=== PATIENT | female | born 1935 | race Two or more races ===

== ENCOUNTER 2020-06-13 09:11 | Inpatient (IN) | payer MEDICARE ==
[2020-06-13] MEDS ORDERED: PIPERACILLIN/TAZOBACTAM 3.375 GM VIAL IV ONE (10:27)
[2020-06-13] MEDS ORDERED: ACETAMINOPHEN 325 MG TABLET PO ONE (10:27)
[2020-06-13] MEDS ORDERED: NORMAL SALINE 1000 ML 1,000 ML IV ONE (10:28)
--- NOTE | 2020-06-13 10:33 | ER Document Report ---
ED Extremity Problem, Lower - General Chief Complaint: Leg Pain Stated Complaint: LEG PAIN Time Seen by Provider: 06/13/20 10:03 Mode of Arrival: Medic Information source: Patient, Relative - HPI Notes: 85-year-old Kyrgyz speaking female presents to ED for evaluation of increasing left lower extremity erythema and swelling over the last week. 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 Daughter states that patient was initially seen at an urgent care for redness to the lower leg. Reports she has had difficulty with ambulation and they gave her a shot of antibiotics which the daughter believes was Rocephin. That she was discharged home on Keflex and has been taking the medication as prescribed. Reports that the redness has been increasing up her leg and into her thigh. Notes that her mother who normally ambulates with a cane has been unable to do so and has begun using a walker however that has also become difficult. Reports that they have called back the urgent care that she was seen at an due to her increasing presentation they recommended that she proceed to the ER for further evaluation and management. Daughter reports that they have not noticed any fevers at home or complaints of chills. She has not complained of any chest pain or shortness of breath. Denies open sores, recent travel, sick contacts or other complaints. Does take 81 mg of aspirin daily for prior history of 3 strokes several years ago. - Related Data Allergies/Adverse Reactions: No Known Allergies Allergy (Unverified 06/13/20 09:22) Past Medical History - Social History Smoking Status: Never Smoker Family History: CVA, DM, Hypertension - Past Medical History Cardiac Medical History: Reports: Hx Hypertension Endocrine Medical History: Reports: Hx Diabetes Mellitus Type 2 Review of Systems - Review of Systems Notes: REVIEW OF SYSTEMS: CONSTITUTIONAL : Denies fever, chills, or sweats. Denies recent illness. EENT: Denies eye, ear, throat, or mouth pain or symptoms. Denies nasal or sinus congestion. CARDIOVASCULAR: Denies chest pain. RESPIRATORY: Denies cough, cold, or chest congestion. Denies shortness of breath, difficulty breathing, or wheezing. GASTROINTESTINAL: Denies abdominal pain. Denies nausea, vomiting, or diarrhea. Denies constipation. Last BM: GENITOURINARY: Denies difficulty urinating, painful urination, burning, frequency, or blood in urine. FEMALE GENITOURINARY: Denies vaginal bleeding, abnormal or irregular periods. LMP: MUSCULOSKELETAL: Denies neck or back pain or joint pain or swelling. SKIN: Erythema and swelling to the left lower extremity. HEMATOLOGIC : Denies easy bruising or bleeding. LYMPHATIC: Denies swollen, enlarged glands. NEUROLOGICAL: Denies altered mental status or loss of consciousness. Denies headache. Denies weakness or paralysis or loss of use of either side. Denies problems with gait or speech. Denies sensory or motor loss. PSYCHIATRIC: Denies anxiety or stress or depression. ALL OTHER SYSTEMS REVIEWED AND NEGATIVE. Physical Exam - Vital signs Vitals: Temp Pulse Resp BP Pulse Ox 98.8 F 95 20 154/66 H 100 06/13/20 09:16 06/13/20 09:16 06/13/20 09:16 06/13/20 09:16 06/13/20 09:16 General: No acute distress. Alert and oriented x3. Speaking azerbaijani to daughter. Sitting comfortably in a stretcher. Skin: Intact without any jaundice, pallor, or erythema. Warm and dry. HEENT: Normocephalic, atraumatic. Pupils are equal round reactive to light and accommodation. Extraocular movements are intact. TMs without erythema or bulging. Canals are clear. Nares patent without any discharge. Teeth in good condition. Pharynx without erythema, edema, or exudates. No tonsillar enlargement. Uvula is midline. Airway is patent. Neck: Supple with no lymphadenopathy. Thyroid is nontender with no swelling or palpable nodules. Heart: Regular rate and rhythm. S1,S2. No murmurs, rubs, or gallops. Lungs: Clear to auscultation bilaterally. No wheezes, rhonchi, rales. Equal c hest expansion. No retractions. Abdomen: Soft, nontender to palpation, nondistended. Positive bowel sounds in all 4 quadrants. No hepatosplenomegaly. No masses. Neuro: GCS 15. Moving all extremities without discomfort. Musculoskeletal: Left Leg: Edema, warmth, and swelling to the left foot and lower calf without ecchymosis, swelling, palpable cords or deformity. Tenderness to palpation present. Full range of motion of hip, knee, and ankle without discomfort. Knee joint is stable. Toes are warm and mobile with brisk capillary refill. Dorsalis pedis pulses 2+ bilaterally. 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 Patient has been on Keflex as an outpatient without improvement. Patient presents to ED today for further evaluation management. On physical exam, patient has erythema extending up the lower extremity. This is blanchable. Patient does not have open sores or lesions I can be cultured at this time. Patient was evaluated with labs which are notable for WBC count of 17.6 with Sodium of 12.9 and glucose of 240. Lactic is negative at 1.0. Doppler ultrasound of the left lower extremity was obtained which is negative for DVT at this time. I see no evidence of superficial thrombophlebitis. I reviewed the radiologist read and with agreement with this. These findings and her use of outpatient antibiotics without improvement I believe this is antibiotic failure. Patient also is found to have an elevated BUN and creatinine which appears to be new for her without clear etiology. Patient was given fluids. I have no evidence of renal failure for her in prior records and she has not been to this hospital in the past. I called and spoke with the hospitalist service and discussed case with PRODUCT TESTER Xin Blackwell has agreed to admit patient in conjunction with Dr. Becker management. Both patient and her daughter are in agreement with IV antibiotics for further management and this plan of care. - Vital Signs Vital signs: Temp Pulse Resp BP Pulse Ox 98.8 F 95 20 154/66 H 100 06/13/20 09:16 06/13/20 09:16 06/13/20 09:16 06/13/20 09:16 06/13/20 09:16 - Laboratory Result Diagrams: 06/13/20 10:45 06/13/20 10:45 Laboratory results interpreted by me: 06/13/20 06/13/20 10:45 10:45 WBC 17.6 H Seg Neuts % (Manual) 92 H Lymphocytes % (Manual) 2 L Abs Neuts (Manual) 16.2 H Abs Lymphs (Manual) 0.4 L Sodium 129.4 L Chloride 97 L BUN 85 H Creatinine 3.62 H Est GFR ( Amer) 15 L Est GFR (MDRD) Non-Af 12 L Glucose 240 H Discharge - Discharge Clinical Impression: Cellulitis of left lower extremity, SONAL (acute kidney injury) Condition: Stable Disposition: ADMITTED OBSERVATION Admitting Provider: Dao (Hospitalist) Unit Admitted: Medical Floor
[2020-06-13 11:36] LABS: HEMATOCRIT 39.1 % (36.0-47.0); HEMOGLOBIN 13.3 g/dL (12.0-15.5); MEAN CORPUSCULAR HEMOGLOBIN 30.6 pg (27.0-33.4); MEAN CORPUSCULAR HGB CONC 34.1 g/dL (32.0-36.0); MEAN CORPUSCULAR VOLUME 90 fl (80-97); PLATELET COUNT 193 10^3/uL (150-450); RED BLOOD COUNT 4.35 10^6/uL (3.72-5.28); WHITE BLOOD COUNT 17.6 10^3/uL (4.0-10.5)
[2020-06-13 11:50] LABS: ALBUMIN 3.9 g/dL (3.5-5.0); ALKALINE PHOSPHATASE 112 U/L (38-126); ANION GAP 9 (5-19); ASPARTATE AMINO TRANSFERASE 32 U/L (14-36); BILIRUBIN,DIRECT 0.2 mg/dL (0.0-0.4); BILIRUBIN,TOTAL 0.5 mg/dL (0.2-1.3); BLOOD UREA NITROGEN 85 mg/dL (7-20); CALCIUM 9.5 mg/dL (8.4-10.2); CARBON DIOXIDE 23 mmol/L (22-30); CHLORIDE 97 mmol/L (98-107); GLUCOSE 240 mg/dL (75-110); POTASSIUM 4.8 mmol/L (3.6-5.0); TOTAL PROTEIN 7.3 g/dL (6.3-8.2)
--- NOTE | 2020-06-13 11:57 | RADIOLOGY REPORT (SQ) ---
EXAM DESCRIPTION: VENOUS UNILATERAL LOWER IMAGES COMPLETED DATE/TIME: 06/13/2020 11:47 am REASON FOR STUDY: left lower extremity swelling - R/O DVT COMPARISON: None. TECHNIQUE: Dynamic and static coleman scale and color images acquired of the left leg venous system. Se lected spectral images acquired with additional compression and augmentation maneuvers. The contralat eral common femoral vein and saphenofemoral junction were also imaged. Images stored on PACS. LIMITATIONS: None. FINDINGS: COMMON FEMORAL: Normal phasicity, compression and augmentation. No visualized echogenic ma terial on coleman scale. No defects on color images. FEMORAL: Normal compression and augmentation. No visualized echogenic material on coleman scale. No defe cts on color images. POPLITEAL: Normal compression, augmentation. No visualized echogenic material on coleman scale. No defec ts on color images. CALF VESSELS: Normal compression, augmentation. No visualized echogenic material on coleman scale. No de fects on color images. GSV and SSV: Normal compression, augmentation. No visualized echogenic material on coleman scale. No def ects on color images. ANY DEEP VENOUS INSUFFICIENCY: Not evaluated. ANY EVIDENCE OF POPLITEAL CYST: No. OTHER: No other significant finding. CONTRALATERAL COMMON FEMORAL VEIN AND SAPHENOFEMORAL JUNCTION: Normal phasicity, compression and augmentation. No visualized echogenic material on coleman scale. No de fects on color images. IMPRESSION: NO EVIDENCE DVT OR SVT IN THE LEFT LEG. TECHNICAL DOCUMENTATION: JOB ID: [id number] 2010 [email or web address]- All Rights Reserved Reading location - IP/workstation name: [email or web address]
[2020-06-13 12:07] LABS: ABSOLUTE LYMPHOCYTES# (MANUAL) 0.4 10^3/uL (0.5-4.7); ABSOLUTE MONOCYTES # (MANUAL) 1.1 10^3/uL (0.1-1.4); BASOPHILS % (MANUAL) 0 % (0-2); EOSINOPHILS % (MANUAL) 0 % (0-6); LYMPHOCYTES % (MANUAL) 2 % (13-45); MONOCYTES % (MANUAL) 6 % (3-13); SEGMENTED NEUTROPHILS % (MAN) 92 % (42-78); TOTAL CELLS COUNTED 100
[2020-06-13 12:08] LABS: ANISOCYTOSIS SLIGHT; PLATELET COMMENT ADEQUATE
[2020-06-13] MEDS ORDERED: MAG HYDROX/AL HYDROX/SIMETH SUSP 30 ML UDCUP PO PRN (13:34)
[2020-06-13] MEDS ORDERED: ALBUTEROL SULFATE 0.083% NEB 2.5 MG/3 ML AMPUL NEB PRN (13:34)
[2020-06-13] MEDS ORDERED: ONDANSETRON HCL INJ/PF 4 MG/2 ML SDV IV PRN (13:34)
[2020-06-13 14:52] LABS: AMORPHOUS SEDIMENT,URINE TRACE /HPF; APPEARANCE,URINE SLIGHTLY-CLOUDY; BILIRUBIN,URINE NEGATIVE (NEGATIVE); COLOR,URINE YELLOW; GLUCOSE, URINE NEGATIVE (NEGATIVE); KETONES,URINE NEGATIVE (NEGATIVE); PROTEIN,URINE 30 mg/dL (NEGATIVE); UROBILINOGEN,URINE NEGATIVE mg/dL (<2.0)
[2020-06-13 15:31] LABS: URINE CREATININE 45.2 mg/dL (15-278)
[2020-06-13] MEDS ORDERED: GLUCAGON,HUMAN RECOMB 1 MG INJ IM PRN (17:08)
[2020-06-13] MEDS ORDERED: DEXTROSE 50%-WATER 25 GM/50 ML DISP.SYRIN IV PRN ×2 (17:08)
[2020-06-13] MEDS ORDERED: DEXTROSE 40% GEL 15 GM TUBE PO PRN ×2 (17:08)
[2020-06-13 17:11] LABS: ANION GAP 8 (5-19); BLOOD UREA NITROGEN 78 mg/dL (7-20); CALCIUM 8.9 mg/dL (8.4-10.2); CARBON DIOXIDE 22 mmol/L (22-30); CHLORIDE 101 mmol/L (98-107); GLUCOSE 177 mg/dL (75-110); POTASSIUM 4.7 mmol/L (3.6-5.0)
[2020-06-13] MEDS: CEFAZOLIN 1 GM/D5W RTU 1 GM/50 ML RTUPB IV SCH (17:15)
[2020-06-13] MEDS: NORMAL SALINE 1000 ML 1,000 ML IV PRN (17:16)
--- NOTE | 2020-06-13 17:41 | PDOC H&P ---
History of Present Illness Admission Date/PCP: 06/13/20 13:49 Patient complains of: left leg pain, weakness, falls History of Present Illness: EDGAR ZAMBRANO is a 85 year old female, who is Kiswahili-speaking only [place], with a past medical history of CVA x3 with residual, mild, left side weakness, HTN, and DM2. She presented to the emergency department after out treatment failure for left lower extremity cellulitis. She was seen at a local urgent care and provided Rocephin followed by oral keflex 4 days ago. Since then, she has had progressively increased tenderness and erythema to her left lower extremity. The cellulitis began to her foot and has gradually spread proximally. The patient's daughter states that she has had in creased fatigue, weakness, and some confusion. She denies fever, n/v/d. They do admit to decrease appetite and oral fluids. No urinary symptoms. She has had multiple falls, without injury. Evaluation in the emergency department found stable vital signs, leukocytosis (WBC 17.6 with a left-sided shift), Hyponatremia (NA 129.4), kidney injury (acute versus chronic; no known prior CKD and no prior labs to compare to. Creatinine 3.62/BUN 85), and a glucose of 240. Urinalysis was negative for UTI. Venous Doppler of the left lower extremity negative for thrombosis. Patient was provided 1 L IV bolus and Zosyn. She was then referred to the hospitalist service for further evaluation management of the above stay complaints and findings. Past Medical History Cardiac Medical History: Reports: Hypertension Pulmonary Medical History: Reports: None EENT Medical History: Reports: None Neurological Medical History: Reports: Ischemic CVA Endocrine Medical History: Reports: Diabetes Mellitus Type 2 Malignancy Medical History: Reports: None GI Medical History: Reports: None Psychiatric Medical History: Reports: None Denies: Depression Traumatic Medical History: Reports: None Hematology: Reports: None Infectious Medical History: Reports: None Past Surgical History Past Surgical History: Reports: Orthopedic Surgery - left hip Social History Information Source: Relative Lives with: Family Smoking Status: Never Smoker Electronic Cigarette use?: No Frequency of Alcohol Use: None Hx Recreational Drug Use: No Drugs: None Hx Prescription Drug Abuse: No Family History Family History: CVA, DM, Hypertension Parental Family History Reviewed: Yes Children Family History Reviewed: Yes Sibling(s) Family History Reviewed.: Yes Medication/Allergy Home Medications: Amlodipine Besylate [Norvasc 5 mg Tablet] 5 mg PO DAILY 06/13/20 Aspirin [Adult Low Dose Aspirin EC] 81 mg PO DAILY 06/13/20 Glipizide [Glipizide Xl] 5 mg PO QAM 06/13/20 Lisinopril [Zestril] 40 mg PO DAILY 06/13/20 Metformin HCl [Glucophage] 1,000 mg PO BIDBS 06/13/20 Pantoprazole Sodium [Protonix [address] Tablet] 40 mg PO QAM 06/13/20 Rosuvastatin Calcium [Crestor] 20 mg PO DAILY 06/13/20 Allergies/Adverse Reactions: No Known Allergies Allergy (Unverified 06/13/20 09:22) Review of Systems Constitutional: PRESENT: anorexia, fatigue, weakness. ABSENT: chills, fever(s), headache(s), weight gain, weight loss Eyes: ABSENT: visual disturbances Ears: ABSENT: hearing changes Cardiovascular: ABSENT: chest pain, dyspnea on exertion, edema, orthropnea, palpitations Respiratory: ABSENT: cough, hemoptysis Gastrointestinal: ABSENT: abdominal pain, constipation, diarrhea, hematemesis, hematochezia, nausea, vomiting Genitourinary: ABSENT: dysuria, hematuria Musculoskeletal: ABSENT: joint swelling Integumentary: PRESENT: as per HPI, erythema. ABSENT: lesions, rash, wounds Neurological: PRESENT: frequent falls. ABSENT: abnormal gait, abnormal speech, confusion, dizziness, focal weakness, syncope Psychiatric: ABSENT: anxiety, depression, homidical ideation, suicidal ideation Endocrine: ABSENT: cold intolerance, heat intolerance, polydipsia, polyuria Hematologic/Lymphatic: ABSENT: easy bleeding, easy bruising Physical Exam Vital Signs: Temp Pulse Resp BP Pulse Ox 98.7 F 85 14 164/64 H 99 06/13/20 16:58 06/13/20 16:58 06/13/20 16:58 06/13/20 16:58 06/13/20 16:58 Intake & Output 06/12/20 06/13/20 06/14/20 06:59 06:59 06:59 Intake Total 1000 Balance 1000 Weight 54.2 kg General appearance: PRESENT: no acute distress, cooperative, well-developed, well-nourished Head exam: PRESENT: atraumatic, normocephalic Eye exam: PRESENT: conjunctiva pink, EOMI, PERRLA. ABSENT: scleral icterus Mouth exam: PRESENT: moist, tongue midline Respiratory exam: PRESENT: clear to auscultation gaurav, symmetrical, unlabored, other - room air. ABSENT: rales, rhonchi, wheezes Cardiovascular exam: PRESENT: RRR. ABSENT: diastolic murmur, rubs, systolic murmur Pulses: PRESENT: normal dorsalis pedis pul Vascular exam: PRESENT: normal capillary refill GI/Abdominal exam: PRESENT: normal bowel sounds, soft. ABSENT: distended, guarding, mass, organolmegaly, rebound, tenderness Rectal exam: PRESENT: deferred Extremities exam: PRESENT: full ROM, pedal edema - lt foot, tenderness - L foor. ABSENT: calf tenderness, clubbing Neurological exam: PRESENT: alert, awake, oriented to person, oriented to place, oriented to time, oriented to situation, CN II-XII grossly intact. ABSENT: motor sensory deficit Psychiatric exam: PRESENT: appropriate affect, normal mood. ABSENT: homicidal ideation, suicidal ideation Skin exam: PRESENT: dry, erythema - Circumfrencial to left foot extending midway to knee. Slight erythema to the anterior thigh just above knee. No lymphangitis. Slight edema. Tender to touch. No break in skin identified., intact, warm. ABSENT: cyanosis, rash Results Laboratory Results: 06/13/20 10:45 06/13/20 06/13/20 06/13/20 10:45 10:45 10:45 WBC 17.6 H RBC 4.35 Hgb 13.3 Hct 39.1 MCV 90 MCH 30.6 MCHC 34.1 RDW 14.0 Plt Count 193 Seg Neutrophils % Not Reportable Sodium 129.4 L Potassium 4.8 Chloride 97 L Carbon Dioxide 23 Anion Gap 9 BUN 85 H Creatinine 3.62 H Est GFR ( Amer) 15 L Glucose 240 H Lactic Acid 1.0 Calcium 9.5 Total Bilirubin 0.5 AST 32 Alkaline Phosphatase 112 Total Protein 7.3 Albumin 3.9 Urine Color Urine Appearance Urine pH Ur Specific [place] Urine Protein Urine Glucose (UA) Urine Ketones Urine Blood Urine RBC (Auto) 06/13/20 14:38 WBC RBC Hgb Hct MCV MCH MCHC RDW Plt Count Seg Neutrophils % Sodium Potassium Chloride Carbon Dioxide Anion Gap BUN Creatinine Est GFR ( Amer) Glucose Lactic Acid Calcium Total Bilirubin AST Alkaline Phosphatase Total Protein Albumin Urine Color YELLOW Urine Appearance SLIGHTLY-CLOUDY Urine pH 5.0 Ur Specific [place] 1.010 Urine Protein 30 H Urine Glucose (UA) NEGATIVE Urine Ketones NEGATIVE Urine Blood MODERATE H Urine RBC (Auto) 1 06/13/20 10:45 Creatine Kinase 138 H Impressions: Venous Doppler Study 06/13/20 10:24 IMPRESSION: NO EVIDENCE DVT OR SVT IN THE LEFT LEG. Assessment and Plan - Diagnosis (1) Cellulitis of left lower extremity Is this a current diagnosis for this admission?: Yes Plan: Failed outpatient treatment with ceftriaxone IM x1 and oral Keflex beginning 4 days ago. Increased tenderness and erythema. Now with generalized weakness and poor p.o. intake. WBCs 17 K. Blood culture pending Patient is admitted to medical floor. Elevate extremity. Start IV cefepime 1 g every 8 hours. (2) Renal insufficiency Is this a current diagnosis for this admission?: Yes Plan: Unclear if patient has chronic kidney disease. Patient's daughter was unaware of any prior kidney disease/disorders. The patient was fatigued did not part icipate in conversation. Creatinine 3.62/BUN 85 on arrival. No prior labs to compare to. FeNa 2.1%; suggesting intrinsic injury. Repeat chemistry following ~1.5L is minimally improved to 3.42/78 Continue IV fluids. Encourage p.o. fluids. Avoid nephrotoxic medications as able. Follow-up chemistries. (3) HTN (hypertension) Qualifiers: Hypertension type: essential hypertension Qualified Code(s): I10 - Essential (primary) hypertension Is this a current diagnosis for this admission?: Yes Plan: Continue home dose amlodipine and lisinopril. (4) Diabetes Qualifiers: Diabetes mellitus type: type 2 Diabetes mellitus [facility] insulin use: without [facility] use Is this a current diagnosis for this admission?: Yes Plan: Holding oral medications while admitted. Patient is placed on a consistent carb diet. Accu-Cheks before meals and at bedtime with Humalog for sliding scale coverage. Hypoglycemia protocol in place. (5) Hyponatremia Is this a current diagnosis for this admission?: Yes Plan: Likely r/t poor p.o. intake over last several days. Na 129.4-> 131.3.3 Continue IVF Follow up chemistry. (6) History of CVA (cerebrovascular accident) Is this a current diagnosis for this admission?: Yes Plan: Mild residual left-sided weakness. Continue home dose aspirin and statin therapy. Supportive care. Fall precautions. - Time Time Spent with patient: 35 or more minutes Medications reviewed and adjusted accordingly: Yes Anticipated Discharge Disposition: Home, Self Care Anticipated Discharge Timeframe: within 48 hours
[2020-06-13] MEDS ORDERED: CEFAZOLIN 1 GM/D5W RTU 1 GM/50 ML RTUPB IV SCH (18:00)
[2020-06-13] MEDS: INSULIN LISPRO 100 UNIT/ML 3 ML VIAL SUBCUT SCH (21:17)
[2020-06-14] MEDS: ACETAMINOPHEN 325 MG TABLET PO PRN ×2 (03:51→08:15)
[2020-06-14] MEDS: NORMAL SALINE 1000 ML 1,000 ML IV PRN ×2 (03:57→23:29)
[2020-06-14] MEDS: CEFAZOLIN 1 GM/D5W RTU 1 GM/50 ML RTUPB IV SCH ×2 (05:07→17:01)
[2020-06-14 05:42] LABS: HEMOGLOBIN 12.2 g/dL (12.0-15.5); MEAN CORPUSCULAR HEMOGLOBIN 30.7 pg (27.0-33.4); MEAN CORPUSCULAR HGB CONC 33.9 g/dL (32.0-36.0); MEAN CORPUSCULAR VOLUME 90 fl (80-97); PLATELET COUNT 170 10^3/uL (150-450); RED BLOOD COUNT 3.98 10^6/uL (3.72-5.28); RED CELL DISTRIBUTION WIDTH 13.4 % (11.5-14.0); WHITE BLOOD COUNT 14.4 10^3/uL (4.0-10.5)
[2020-06-14 06:04] LABS: ANION GAP 13 (5-19); BLOOD UREA NITROGEN 69 mg/dL (7-20); CALCIUM 8.8 mg/dL (8.4-10.2); CARBON DIOXIDE 19 mmol/L (22-30); CHLORIDE 105 mmol/L (98-107); GLUCOSE 98 mg/dL (75-110); POTASSIUM 4.1 mmol/L (3.6-5.0)
[2020-06-14 06:28] LABS: ABSOLUTE LYMPHOCYTES# (MANUAL) 0.6 10^3/uL (0.5-4.7); ABSOLUTE MONOCYTES # (MANUAL) 0.7 10^3/uL (0.1-1.4); BAND NEUTROPHILS % (MANUAL) 1 % (3-5); BASOPHILS % (MANUAL) 0 % (0-2); EOSINOPHILS % (MANUAL) 0 % (0-6); LYMPHOCYTES % (MANUAL) 4 % (13-45); MONOCYTES % (MANUAL) 5 % (3-13); SEGMENTED NEUTROPHILS % (MAN) 90 % (42-78); TOTAL CELLS COUNTED 100
[2020-06-14 06:29] LABS: BURR CELLS 1+; HYPERSEGMENTED NEUTROPHILS PRESENT; PLATELET COMMENT ADEQUATE; POIKILOCYTOSIS 1+
[2020-06-14] MEDS ORDERED: INFLUENZA QUAD (6MOS+) 2020-21 VAC 0.5 ML SYR IM ONE (08:00)
[2020-06-14] MEDS: INSULIN LISPRO 100 UNIT/ML 3 ML VIAL SUBCUT SCH ×4 (08:01→21:24)
[2020-06-14] MEDS: PANTOPRAZOLE SODIUM 40 MG TABLET.DR PO SCH (08:12)
[2020-06-14] MEDS: AMLODIPINE BESYLATE 5 MG TABLET PO SCH (10:11)
[2020-06-14] MEDS: ASPIRIN 81 MG TABLET, ENT COATED PO SCH (10:11)
[2020-06-14] MEDS: DOCUSATE SODIUM 100 MG CAPSULE PO SCH (10:11)
[2020-06-14] MEDS: LISINOPRIL 10 MG TABLET PO SCH (10:11)
[2020-06-14] MEDS: ENOXAPARIN SODIUM INJ 30 MG/0.3 ML DISP.SYRIN SUBCUT SCH (10:12)
[2020-06-14] MEDS ORDERED: ACETAMINOPHEN 325 MG TABLET PO PRN (11:30)
--- NOTE | 2020-06-14 16:20 | PDOC PROGRESS REPORT ---
Subjective Date:: 06/14/20 Subjective:: No adverse events overnight. She is comfortable sitting up in the bed talking w ith her daughter. She says she feels like the redness in her leg and foot is not as bad as it was when she came in. She apparently had been on oral antibiotics for 3 to 4 days before she came back into the hospital. Reason For Visit: SONAL, CELLULITIS Physical Exam Vital Signs: Temp Pulse Resp BP Pulse Ox 97.7 F 89 18 166/60 H 100 06/14/20 11:17 06/14/20 11:17 06/14/20 11:17 06/14/20 11:17 06/14/20 11:17 Intake & Output 06/13/20 06/14/20 06/15/20 06:59 06:59 06:59 Intake Total 2200 641 Output Total 1000 750 Balance 1200 -109 Weight 54.4 kg General appearance: PRESENT: no acute distress, cooperative, disheveled Respiratory exam: PRESENT: clear to auscultation gaurav, symmetrical, unlabored. ABSENT: accessory muscle use, chest wall tenderness, crackles, prolonged expiratory phas, rhonchi, tachypnea, wheezes Cardiovascular exam: PRESENT: RRR, +S1, +S2 Pulses: PRESENT: normal carotid pulses Vascular exam: PRESENT: normal capillary refill GI/Abdominal exam: PRESENT: normal bowel sounds, soft. ABSENT: distended, guarding, rebound, tenderness Extremities exam: PRESENT: pedal edema - Left foot, +1 edema - Left ankle. ABSENT: clubbing Musculoskeletal exam: ABSENT: deformity Neurological exam: PRESENT: awake, oriented to person, oriented to place, oriented to situation Psychiatric exam: PRESENT: appropriate affect, normal mood Skin exam: PRESENT: dry, erythema - Left foot, extending up the medial aspect of the left leg to about 8 cm proximal to the knee, warm Results Laboratory Results: 06/14/20 05:00 06/14/20 05:00 06/13/20 06/14/20 06/14/20 16:35 05:00 05:00 WBC 14.4 H RBC 3.98 Hgb 12.2 Hct 36.0 MCV 90 MCH 30.7 MCHC 33.9 RDW 13.4 Plt Count 170 Seg Neutrophils % Not Reportable Sodium 131.3 L 136.9 L Potassium 4.7 4.1 Chloride 101 105 Carbon Dioxide 22 19 L Anion Gap 8 13 BUN 78 H 69 H Creatinine 3.42 H 3.12 H Est GFR ( Amer) 16 L 17 L Glucose 177 H 98 Calcium 8.9 8.8 06/13/20 10:45 Creatine Kinase 138 H Impressions: Venous Doppler Study 06/13/20 10:24 IMPRESSION: NO EVIDENCE DVT OR SVT IN THE LEFT LEG. Assessment and Plan - Diagnosis (1) SONAL (acute kidney injury) Is this a current diagnosis for this admission?: Yes (2) Cellulitis of left lower extremity Is this a current diagnosis for this admission?: Yes (3) Diabetes Qualifiers: Diabetes mellitus type: type 2 Diabetes mellitus [facility] insulin use: without [facility] use Is this a current diagnosis for this admission?: Yes (4) HTN (hypertension) Qualifiers: Hypertension type: essential hypertension Qualified Code(s): I10 - Essential (primary) hypertension Is this a current diagnosis for this admission?: Yes (5) History of CVA (cerebrovascular accident) Is this a current diagnosis for this admission?: Yes - Plan Summary Summary: She seems to be responding well to antibiotics. We will continue current therapy. Blood cultures are pending. No evidence of any drainable abscess or DVT. Creatinine continues to slowly trend down. Anticipate she is going to ne ed another 3 or 4 days at this rate. Keeping a close eye on her blood sugars. Vital signs have been stable. - Time Time Spent with patient: 15-24 minutes Anticipated Discharge Disposition: Home, Self Care Anticipated Discharge Timeframe: Unknown
--- NOTE | 2020-06-15 00:34 | CDI QUERY ---
CDI Query CDI Review: We are seeking further clarification of documentation to reflect the severity of illness of your patient. 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 JOAQUIN Thurston RN Clinical [employer] Plant Sweater Operator Physician Advisor
[2020-06-15] MEDS: CEFAZOLIN 1 GM/D5W RTU 1 GM/50 ML RTUPB IV SCH ×2 (05:55→17:16)
[2020-06-15] MEDS: INSULIN LISPRO 100 UNIT/ML 3 ML VIAL SUBCUT SCH ×4 (07:08→22:31)
[2020-06-15] MEDS: ENOXAPARIN SODIUM INJ 30 MG/0.3 ML DISP.SYRIN SUBCUT SCH (09:38)
[2020-06-15] MEDS: DOCUSATE SODIUM 100 MG CAPSULE PO SCH (09:38)
[2020-06-15] MEDS: ASPIRIN 81 MG TABLET, ENT COATED PO SCH (09:39)
[2020-06-15] MEDS: AMLODIPINE BESYLATE 5 MG TABLET PO SCH (09:39)
[2020-06-15] MEDS: NORMAL SALINE 1000 ML 1,000 ML IV PRN (09:39)
[2020-06-15] MEDS: PANTOPRAZOLE SODIUM 40 MG TABLET.DR PO SCH (09:39)
[2020-06-15] MEDS: LISINOPRIL 10 MG TABLET PO SCH (09:39)
[2020-06-15 11:47] LABS: HEMOGLOBIN 12.6 g/dL (12.0-15.5); MEAN CORPUSCULAR HEMOGLOBIN 30.2 pg (27.0-33.4); MEAN CORPUSCULAR HGB CONC 33.3 g/dL (32.0-36.0); MEAN CORPUSCULAR VOLUME 91 fl (80-97); PLATELET COUNT 193 10^3/uL (150-450); RED BLOOD COUNT 4.19 10^6/uL (3.72-5.28); RED CELL DISTRIBUTION WIDTH 13.9 % (11.5-14.0); WHITE BLOOD COUNT 11.9 10^3/uL (4.0-10.5)
[2020-06-15 12:10] LABS: ANION GAP 11 (5-19); BLOOD UREA NITROGEN 51 mg/dL (7-20); CALCIUM 8.2 mg/dL (8.4-10.2); CARBON DIOXIDE 17 mmol/L (22-30); CHLORIDE 105 mmol/L (98-107); POTASSIUM 4.2 mmol/L (3.6-5.0)
[2020-06-15 12:17] LABS: GLUCOSE 458 mg/dL (75-110)
[2020-06-15] MEDS ORDERED: INSULIN LISPRO 100 UNIT/ML 3 ML VIAL SUBCUT ONE (13:45)
--- NOTE | 2020-06-15 17:22 | PDOC PROGRESS REPORT ---
Subjective Date:: 06/15/20 Subjective:: No adverse events overnight. No new complaints. Vital signs been stable. Bloo d pressures are a little high in the morning before she gets her medication. They improved steadily throughout the day. The redness in her leg is improved. She said overall she feels pretty good. Reason For Visit: SONAL, CELLULITIS Physical Exam Vital Signs: Temp Pulse Resp BP Pulse Ox 98.0 F 87 18 149/60 H 100 06/15/20 15:37 06/15/20 15:37 06/15/20 15:37 06/15/20 15:37 06/15/20 15:37 Intake & Output 06/14/20 06/15/20 06/16/20 06:59 06:59 06:59 Intake Total 2200 3421 600 Output Total 1000 3700 675 Balance 1200 -279 -75 Weight 54.4 kg 54.4 kg General appearance: PRESENT: no acute distress, cooperative, disheveled Respiratory exam: PRESENT: clear to auscultation gaurav, symmetrical, unlabored. ABSENT: accessory muscle use, chest wall tenderness, crackles, prolonged expiratory phas, rhonchi, tachypnea, wheezes Cardiovascular exam: PRESENT: RRR, +S1, +S2 Pulses: PRESENT: normal carotid pulses Vascular exam: PRESENT: normal capillary refill GI/Abdominal exam: PRESENT: normal bowel sounds, soft. ABSENT: distended, guarding, rebound, tenderness Extremities exam: PRESENT: pedal edema - Left foot, +1 edema - Left ankle. ABSENT: clubbing Musculoskeletal exam: ABSENT: deformity Neurological exam: PRESENT: awake, oriented to person, oriented to place, oriented to situation Psychiatric exam: PRESENT: appropriate affect, normal mood Skin exam: PRESENT: dry, erythema - Left foot, extending up the medial aspect of the left leg to about 4 cm distal to the knee, warm Results Laboratory Results: 06/15/20 11:30 06/15/20 11:30 06/15/20 06/15/20 11:30 11:30 WBC 11.9 H RBC 4.19 Hgb 12.6 Hct 38.0 MCV 91 MCH 30.2 MCHC 33.3 RDW 13.9 Plt Count 193 Sodium 132.8 L Potassium 4.2 Chloride 105 Carbon Dioxide 17 L Anion Gap 11 BUN 51 H Creatinine 2.43 H Est GFR ( Amer) 23 L Glucose 458 H* Calcium 8.2 L 06/13/20 10:45 Creatine Kinase 138 H Impressions: Venous Doppler Study 06/13/20 10:24 IMPRESSION: NO EVIDENCE DVT OR SVT IN THE LEFT LEG. Assessment and Plan - Diagnosis (1) SONAL (acute kidney injury) Is this a current diagnosis for this admission?: Yes (2) Cellulitis of left lower extremity Is this a current diagnosis for this admission?: Yes Plan: Unable to determine if the cellulitis is due to her diabetes (3) Diabetes Qualifiers: Diabetes mellitus type: type 2 Diabetes mellitus intermediate insulin use: without intermediate use Is this a current diagnosis for this admission?: Yes (4) HTN (hypertension) Qualifiers: Hypertension type: essential hypertension Qualified Code(s): I10 - Essential (primary) hypertension Is this a current diagnosis for this admission?: Yes (5) History of CVA (cerebrovascular accident) Is this a current diagnosis for this admission?: Yes - Plan Summary Summary: She seems to be responding well to antibiotics, erythema is resolving. We will continue current therapy. Blood cultures are negative at 48 hours. No evidence of any drainable abscess or DVT. Creatinine continues to slowly trend down. Anticipate she is going to need another 3 days at this rate. Keeping a close eye on her blood sugars, she had an elevated sugar midday but that has improved. - Time Time Spent with patient: 15-24 minutes Anticipated Discharge Disposition: Home, Self Care Anticipated Discharge Timeframe: Unknown
[2020-06-16] MEDS: NORMAL SALINE 1000 ML 1,000 ML IV PRN ×2 (03:44→17:41)
[2020-06-16] MEDS: CEFAZOLIN 1 GM/D5W RTU 1 GM/50 ML RTUPB IV SCH ×2 (05:04→17:40)
[2020-06-16 05:47] LABS: HEMOGLOBIN 12.1 g/dL (12.0-15.5); MEAN CORPUSCULAR HGB CONC 33.7 g/dL (32.0-36.0); MEAN CORPUSCULAR VOLUME 89 fl (80-97); PLATELET COUNT 206 10^3/uL (150-450); RED BLOOD COUNT 4.03 10^6/uL (3.72-5.28); WHITE BLOOD COUNT 8.5 10^3/uL (4.0-10.5)
[2020-06-16 06:01] LABS: ANION GAP 6 (5-19); BLOOD UREA NITROGEN 40 mg/dL (7-20); CALCIUM 8.1 mg/dL (8.4-10.2); CARBON DIOXIDE 21 mmol/L (22-30); CHLORIDE 112 mmol/L (98-107); GLUCOSE 145 mg/dL (75-110); POTASSIUM 4.4 mmol/L (3.6-5.0)
[2020-06-16] MEDS: PANTOPRAZOLE SODIUM 40 MG TABLET.DR PO SCH (08:08)
[2020-06-16] MEDS: INSULIN LISPRO 100 UNIT/ML 3 ML VIAL SUBCUT SCH ×4 (08:10→22:51)
[2020-06-16] MEDS: DOCUSATE SODIUM 100 MG CAPSULE PO SCH (09:21)
[2020-06-16] MEDS: LISINOPRIL 10 MG TABLET PO SCH (09:21)
[2020-06-16] MEDS: ENOXAPARIN SODIUM INJ 30 MG/0.3 ML DISP.SYRIN SUBCUT SCH (09:22)
[2020-06-16] MEDS: AMLODIPINE BESYLATE 5 MG TABLET PO SCH (09:22)
[2020-06-16] MEDS: ASPIRIN 81 MG TABLET, ENT COATED PO SCH (09:22)
--- NOTE | 2020-06-16 17:28 | PDOC PROGRESS REPORT ---
Subjective Date:: 06/16/20 Subjective:: No adverse events overnight. No new complaints. Blood pressures have been elev ated today. She is able to get up to walk to the bathroom with a walker and standby assistance. Reason For Visit: SONAL, CELLULITIS Physical Exam Vital Signs: Temp Pulse Resp BP Pulse Ox 97.7 F 77 17 183/63 H 100 06/16/20 11:13 06/16/20 11:13 06/16/20 11:13 06/16/20 11:13 06/16/20 11:13 Intake & Output 06/15/20 06/16/20 06/17/20 06:59 06:59 06:59 Intake Total 3421 2700 240 Output Total 3700 3075 Balance -279 -375 240 Weight 54.4 kg 54.4 kg General appearance: PRESENT: no acute distress, cooperative, disheveled Respiratory exam: PRESENT: clear to auscultation gaurav, symmetrical, unlabored. ABSENT: accessory muscle use, chest wall tenderness, crackles, prolonged expiratory phas, rhonchi, tachypnea, wheezes Cardiovascular exam: PRESENT: RRR, +S1, +S2 Pulses: PRESENT: normal carotid pulses Vascular exam: PRESENT: normal capillary refill GI/Abdominal exam: PRESENT: normal bowel sounds, soft. ABSENT: distended, guarding, rebound, tenderness Extremities exam: PRESENT: pedal edema - Left foot, +1 edema - Left ankle. ABSENT: clubbing Musculoskeletal exam: ABSENT: deformity Neurological exam: PRESENT: awake, oriented to person, oriented to place, oriented to situation Psychiatric exam: PRESENT: appropriate affect, normal mood Skin exam: PRESENT: dry, erythema - Left foot, extending up the medial aspect of the left leg to about 9 cm distal to the knee, warm Results Laboratory Results: 06/16/20 04:56 06/16/20 04:56 06/16/20 06/16/20 04:56 04:56 WBC 8.5 RBC 4.03 Hgb 12.1 Hct 36.0 MCV 89 MCH 30.0 MCHC 33.7 RDW 14.0 Plt Count 206 Sodium 138.7 Potassium 4.4 Chloride 112 H Carbon Dioxide 21 L Anion Gap 6 BUN 40 H Creatinine 2.61 H Est GFR ( Amer) 21 L Glucose 145 H Calcium 8.1 L 06/13/20 10:45 Creatine Kinase 138 H Impressions: Venous Doppler Study 06/13/20 10:24 IMPRESSION: NO EVIDENCE DVT OR SVT IN THE LEFT LEG. Assessment and Plan - Diagnosis (1) SONAL (acute kidney injury) Is this a current diagnosis for this admission?: Yes (2) Cellulitis of left lower extremity Is this a current diagnosis for this admission?: Yes (3) Diabetes Qualifiers: Diabetes mellitus type: type 2 Diabetes mellitus group home insulin use: without group home use Is this a current diagnosis for this admission?: Yes (4) HTN (hypertension) Qualifiers: Hypertension type: essential hypertension Qualified Code(s): I10 - Essential (primary) hypertension Is this a current diagnosis for this admission?: Yes (5) History of CVA (cerebrovascular accident) Is this a current diagnosis for this admission?: Yes - Plan Summary Summary: She seems to be responding well to antibiotics, erythema is resolving. We will continue current therapy. Blood cultures are negative. No evidence of any drai nable abscess or DVT. Creatinine has stagnated, but this may not be too far from her baseline. BUN continues to improve. Urine output has been good. I increased her amlodipine and have added chlorthalidone for better blood pressure control. She seems to have an elevated blood sugar before lunch but then after lunch when it is checked again after her prelunch insulin it comes back down. - Time Time Spent with patient: 15-24 minutes Anticipated Discharge Disposition: Home with Home Health Anticipated Discharge Timeframe: within 72 hours
[2020-06-17] MEDS: NORMAL SALINE 1000 ML 1,000 ML IV PRN ×2 (05:00→13:42)
[2020-06-17 05:26] LABS: HEMATOCRIT 35.4 % (36.0-47.0); HEMOGLOBIN 12.2 g/dL (12.0-15.5); MEAN CORPUSCULAR HEMOGLOBIN 30.6 pg (27.0-33.4); MEAN CORPUSCULAR HGB CONC 34.4 g/dL (32.0-36.0); MEAN CORPUSCULAR VOLUME 89 fl (80-97); PLATELET COUNT 219 10^3/uL (150-450); RED BLOOD COUNT 3.98 10^6/uL (3.72-5.28); RED CELL DISTRIBUTION WIDTH 13.9 % (11.5-14.0); WHITE BLOOD COUNT 9.8 10^3/uL (4.0-10.5)
[2020-06-17 05:50] LABS: ANION GAP 10 (5-19); BLOOD UREA NITROGEN 28 mg/dL (7-20); CALCIUM 7.9 mg/dL (8.4-10.2); CARBON DIOXIDE 19 mmol/L (22-30); CHLORIDE 111 mmol/L (98-107); GLUCOSE 144 mg/dL (75-110); POTASSIUM 3.8 mmol/L (3.6-5.0)
[2020-06-17] MEDS: CEFAZOLIN 1 GM/D5W RTU 1 GM/50 ML RTUPB IV SCH ×2 (06:08→17:02)
[2020-06-17] MEDS: INSULIN LISPRO 100 UNIT/ML 3 ML VIAL SUBCUT SCH ×4 (07:52→21:49)
[2020-06-17] MEDS: PANTOPRAZOLE SODIUM 40 MG TABLET.DR PO SCH (07:52)
[2020-06-17] MEDS: ASPIRIN 81 MG TABLET, ENT COATED PO SCH (10:07)
[2020-06-17] MEDS: DOCUSATE SODIUM 100 MG CAPSULE PO SCH (10:08)
[2020-06-17] MEDS: LISINOPRIL 10 MG TABLET PO SCH (10:08)
[2020-06-17] MEDS: AMLODIPINE BESYLATE 10 MG TABLET PO SCH (10:10)
[2020-06-17] MEDS: CHLORTHALIDONE 25 MG TABLET PO SCH (10:10)
[2020-06-17] MEDS: ENOXAPARIN SODIUM INJ 30 MG/0.3 ML DISP.SYRIN SUBCUT SCH (10:11)
--- NOTE | 2020-06-17 18:10 | PDOC PROGRESS REPORT ---
Subjective Date:: 06/17/20 Subjective:: No adverse events overnight. No new complaints. Vital signs have been stable. Blood pressures are still a bit on the high side. Creatinine has improved a little bit from yesterday. She said she is not eating very much because no appetite, and she is not able to sleep very well here. Reason For Visit: SONAL, CELLULITIS Physical Exam Vital Signs: Temp Pulse Resp BP Pulse Ox 98.8 F 100 18 165/83 H 97 06/17/20 16:00 06/17/20 16:00 06/17/20 16:00 06/17/20 16:00 06/17/20 16:00 Intake & Output 06/16/20 06/17/20 06/18/20 06:59 06:59 06:59 Intake Total 2700 3540 1620 Output Total 3075 3600 2000 Balance -375 -60 -380 Weight 54.4 kg 54.4 kg General appearance: PRESENT: no acute distress, cooperative, disheveled Respiratory exam: PRESENT: clear to auscultation gaurav, symmetrical, unlabored. ABSENT: accessory muscle use, chest wall tenderness, crackles, prolonged expiratory phas, rhonchi, tachypnea, wheezes Cardiovascular exam: PRESENT: RRR, +S1, +S2 Pulses: PRESENT: normal carotid pulses Vascular exam: PRESENT: normal capillary refill GI/Abdominal exam: PRESENT: normal bowel sounds, soft. ABSENT: distended, guarding, rebound, tenderness Extremities exam: PRESENT: pedal edema - Left foot, trace edema - Left ankle. ABSENT: clubbing Musculoskeletal exam: ABSENT: deformity Neurological exam: PRESENT: awake, oriented to person, oriented to place, oriented to situation Psychiatric exam: PRESENT: appropriate affect, normal mood Skin exam: PRESENT: dry, erythema - Left foot, extending up the medial aspect of the left leg to about 10 cm proximal to the ankle, warm Results Laboratory Results: 06/17/20 04:36 06/17/20 04:36 06/17/20 06/17/20 04:36 04:36 WBC 9.8 RBC 3.98 Hgb 12.2 Hct 35.4 L MCV 89 MCH 30.6 MCHC 34.4 RDW 13.9 Plt Count 219 Sodium 139.6 Potassium 3.8 Chloride 111 H Carbon Dioxide 19 L Anion Gap 10 BUN 28 H Creatinine 2.28 H Est GFR ( Amer) 25 L Glucose 144 H Calcium 7.9 L 06/13/20 10:45 Creatine Kinase 138 H Impressions: Venous Doppler Study 06/13/20 10:24 IMPRESSION: NO EVIDENCE DVT OR SVT IN THE LEFT LEG. Assessment and Plan - Diagnosis (1) SONAL (acute kidney injury) Is this a current diagnosis for this admission?: Yes (2) Cellulitis of left lower extremity Is this a current diagnosis for this admission?: Yes (3) Diabetes Qualifiers: Diabetes mellitus type: type 2 Diabetes mellitus usp insulin use: without usp use Is this a current diagnosis for this admission?: Yes (4) HTN (hypertension) Qualifiers: Hypertension type: essential hypertension Qualified Code(s): I10 - Essential (primary) hypertension Is this a current diagnosis for this admission?: Yes (5) History of CVA (cerebrovascular accident) Is this a current diagnosis for this admission?: Yes - Plan Summary Summary: She is having a favorable response to antibiotics, erythema is resolving. We will continue current therapy. Blood cultures are negative. No evidence of any drainable abscess or DVT. Creatinine has improved more from yesterday, but this still may not be too far from her baseline. BUN continues to improve. Urine output has been good. I increased her amlodipine and have added chlorthalidone for better blood pressure control. She seems to have an elevated blood sugar before lunch but then after lunch when it is checked again after her prelunch insulin it comes back down to some degree. If her blood sugars continue to rem ain somewhat elevated I may add some Lantus. - Time Time Spent with patient: 15-24 minutes Anticipated Discharge Disposition: Home, Self Care Anticipated Discharge Timeframe: within 72 hours
[2020-06-18] MEDS: CEFAZOLIN 1 GM/D5W RTU 1 GM/50 ML RTUPB IV SCH ×2 (05:31→17:10)
[2020-06-18] MEDS: NORMAL SALINE 1000 ML 1,000 ML IV PRN ×2 (05:34→11:54)
[2020-06-18 05:57] LABS: MEAN CORPUSCULAR HEMOGLOBIN 30.6 pg (27.0-33.4); MEAN CORPUSCULAR HGB CONC 34.4 g/dL (32.0-36.0); MEAN CORPUSCULAR VOLUME 89 fl (80-97); PLATELET COUNT 205 10^3/uL (150-450); RED BLOOD COUNT 3.94 10^6/uL (3.72-5.28); WHITE BLOOD COUNT 9.6 10^3/uL (4.0-10.5)
[2020-06-18 06:17] LABS: ANION GAP 11 (5-19); BLOOD UREA NITROGEN 20 mg/dL (7-20); CALCIUM 7.8 mg/dL (8.4-10.2); CARBON DIOXIDE 21 mmol/L (22-30); CHLORIDE 106 mmol/L (98-107); GLUCOSE 138 mg/dL (75-110); POTASSIUM 3.5 mmol/L (3.6-5.0)
[2020-06-18] MEDS: INSULIN LISPRO 100 UNIT/ML 3 ML VIAL SUBCUT SCH ×4 (07:19→22:14)
[2020-06-18] MEDS: PANTOPRAZOLE SODIUM 40 MG TABLET.DR PO SCH (08:10)
[2020-06-18] MEDS: AMLODIPINE BESYLATE 10 MG TABLET PO SCH (09:30)
[2020-06-18] MEDS: DOCUSATE SODIUM 100 MG CAPSULE PO SCH (09:30)
[2020-06-18] MEDS: ASPIRIN 81 MG TABLET, ENT COATED PO SCH (09:31)
[2020-06-18] MEDS: LISINOPRIL 10 MG TABLET PO SCH (09:31)
[2020-06-18] MEDS: CHLORTHALIDONE 25 MG TABLET PO SCH (09:32)
[2020-06-18] MEDS: ENOXAPARIN SODIUM INJ 30 MG/0.3 ML DISP.SYRIN SUBCUT SCH (09:32)
--- NOTE | 2020-06-18 17:06 | PDOC PROGRESS REPORT ---
Subjective Date:: 06/18/20 Subjective:: No adverse events overnight. No new complaints. Vital signs stable. Eating an d drinking without difficulty. We started chlorthalidone but her blood pressure was still elevated this afternoon. Midday glucose also seems to be the one that is the most elevated. Reason For Visit: SONAL, CELLULITIS Physical Exam Vital Signs: Temp Pulse Resp BP Pulse Ox 99.1 F 81 17 175/72 H 98 06/18/20 11:39 06/18/20 11:39 06/18/20 11:39 06/18/20 11:39 06/18/20 11:39 Intake & Output 06/17/20 06/18/20 06/19/20 06:59 06:59 06:59 Intake Total 3540 2900 1476 Output Total 3600 4130 1300 Balance -60 -1230 176 Weight 54.4 kg 58.3 kg General appearance: PRESENT: no acute distress, cooperative, disheveled Respiratory exam: PRESENT: clear to auscultation gaurav, symmetrical, unlabored. ABSENT: accessory muscle use, chest wall tenderness, crackles, prolonged expiratory phas, rhonchi, tachypnea, wheezes Cardiovascular exam: PRESENT: RRR, +S1, +S2 Pulses: PRESENT: normal carotid pulses Vascular exam: PRESENT: normal capillary refill GI/Abdominal exam: PRESENT: normal bowel sounds, soft. ABSENT: distended, guar ding, rebound, tenderness Extremities exam: PRESENT: pedal edema - Left foot, trace edema - Left ankle. ABSENT: clubbing Musculoskeletal exam: ABSENT: deformity Neurological exam: PRESENT: awake, oriented to person, oriented to place, oriented to situation Psychiatric exam: PRESENT: appropriate affect, normal mood Skin exam: PRESENT: dry, erythema - Left foot, extending just proximal to the ankle and significantly diminished, warm Results Laboratory Results: 06/18/20 05:00 06/18/20 05:00 06/18/20 06/18/20 05:00 05:00 WBC 9.6 RBC 3.94 Hgb 12.0 Hct 35.0 L MCV 89 MCH 30.6 MCHC 34.4 RDW 14.0 Plt Count 205 Sodium 138.3 Potassium 3.5 L Chloride 106 Carbon Dioxide 21 L Anion Gap 11 BUN 20 Creatinine 2.02 H Est GFR ( Amer) 28 L Glucose 138 H Calcium 7.8 L 06/13/20 11:43 Blood Blood Culture - Final NO GROWTH IN 5 DAYS 06/13/20 10:45 Blood Blood Culture - Final NO GROWTH IN 5 DAYS 06/13/20 10:45 Creatine Kinase 138 H Impressions: Venous Doppler Study 06/13/20 10:24 IMPRESSION: NO EVIDENCE DVT OR SVT IN THE LEFT LEG. Assessment and Plan - Diagnosis (1) SONAL (acute kidney injury) Is this a current diagnosis for this admission?: Yes (2) Cellulitis of left lower extremity Is this a current diagnosis for this admission?: Yes (3) Diabetes Qualifiers: Diabetes mellitus type: type 2 Diabetes mellitus mcc insulin use: without mcc use Is this a current diagnosis for this admission?: Yes (4) HTN (hypertension) Qualifiers: Hypertension type: essential hypertension Qualified Code(s): I10 - Essenti al (primary) hypertension Is this a current diagnosis for this admission?: Yes (5) History of CVA (cerebrovascular accident) Is this a current diagnosis for this admission?: Yes - Plan Summary Summary: She is having a favorable response to antibiotics, erythema is resolving. We will continue current therapy. Blood cultures are negative. No evidence of any drainable abscess or DVT. Creatinine continues to improve, not sure what is her baseline. BUN continues to improve. Urine output has been good. I increased her amlodipine and have added chlorthalidone for better blood pressure control, will monitor for another day to see if she needs a fourth agent. She seems to have an elevated blood sugar before lunch but then after lunch when it is checked again after her prelunch insulin it comes back down to some degree. I will add a small dose of Lantus. - Time Time Spent with patient: 15-24 minutes Anticipated Discharge Disposition: Home with Home Health Anticipated Discharge Timeframe: within 72 hours
[2020-06-19] MEDS: NORMAL SALINE 1000 ML 1,000 ML IV PRN (06:03)
[2020-06-19] MEDS: CEFAZOLIN 1 GM/D5W RTU 1 GM/50 ML RTUPB IV SCH ×2 (06:03→17:01)
[2020-06-19] MEDS: INSULIN LISPRO 100 UNIT/ML 3 ML VIAL SUBCUT SCH ×4 (08:46→21:36)
[2020-06-19 10:57] LABS: ANION GAP 8 (5-19); BLOOD UREA NITROGEN 19 mg/dL (7-20); CALCIUM 7.1 mg/dL (8.4-10.2); CARBON DIOXIDE 23 mmol/L (22-30); CHLORIDE 102 mmol/L (98-107); GLUCOSE 342 mg/dL (75-110); POTASSIUM 3.5 mmol/L (3.6-5.0)
[2020-06-19] MEDS: ENOXAPARIN SODIUM INJ 30 MG/0.3 ML DISP.SYRIN SUBCUT SCH (11:33)
[2020-06-19] MEDS: PANTOPRAZOLE SODIUM 40 MG TABLET.DR PO SCH (11:34)
[2020-06-19] MEDS: ASPIRIN 81 MG TABLET, ENT COATED PO SCH (11:34)
[2020-06-19] MEDS: AMLODIPINE BESYLATE 10 MG TABLET PO SCH (11:34)
[2020-06-19] MEDS: INSULIN GLARGINE,HUM.REC.ANLOG 1,000 UNIT/10 ML VIAL SUBCUT SCH (11:35)
[2020-06-19] MEDS: LISINOPRIL 10 MG TABLET PO SCH (11:35)
[2020-06-19] MEDS: CHLORTHALIDONE 25 MG TABLET PO SCH (11:36)
[2020-06-19] MEDS: DOCUSATE SODIUM 100 MG CAPSULE PO SCH (11:36)
--- NOTE | 2020-06-19 15:42 | RADIOLOGY REPORT (SQ) ---
EXAM DESCRIPTION: VENOUS UNILATERAL LOWER IMAGES COMPLETED DATE/TIME: 06/19/2020 2:25 pm REASON FOR STUDY: left leg swelling, r/o DVT COMPARISON: None. TECHNIQUE: Dynamic and static coleman scale and color images acquired of the left leg venous system. Se lected spectral images acquired with additional compression and augmentation maneuvers. The contralat eral common femoral vein and saphenofemoral junction were also imaged. Images stored on PACS. LIMITATIONS: None. FINDINGS: COMMON FEMORAL: Normal phasicity, compression and augmentation. No visualized echogenic ma terial on coleman scale. No defects on color images. FEMORAL: Normal compression and augmentation. No visualized echogenic material on coleman scale. No defe cts on color images. POPLITEAL: Normal compression, augmentation. No visualized echogenic material on coleman scale. No defec ts on color images. CALF VESSELS: Normal compression, augmentation. No visualized echogenic material on coleman scale. No de fects on color images. GSV and SSV: Normal compression, augmentation. No visualized echogenic material on coleman scale. No def ects on color images. ANY DEEP VENOUS INSUFFICIENCY: Not evaluated. ANY EVIDENCE OF POPLITEAL CYST: No. OTHER: There is subcutaneous edema. CONTRALATERAL COMMON FEMORAL VEIN AND SAPHENOFEMORAL JUNCTION: Normal phasicity, compression and augmentation. No visualized echogenic material on coleman scale. No de fects on color images. IMPRESSION: NO EVIDENCE OF DVT OR SVT IN THE LEFT LEG. TECHNICAL DOCUMENTATION: JOB ID: [id number] 2010 [employer]- All Rights Reserved Reading location - IP/workstation name: [email or web address]
--- NOTE | 2020-06-19 16:09 | PDOC PROGRESS REPORT ---
Subjective Date:: 06/19/20 Subjective:: No adverse events overnight. No new complaints. Blood pressures are a little b it better. blood sugars are still a bit elevated. Reason For Visit: SONAL, CELLULITIS Physical Exam Vital Signs: Temp Pulse Resp BP Pulse Ox 99.3 F 71 17 152/56 H 95 06/19/20 11:12 06/19/20 11:12 06/19/20 11:12 06/19/20 11:12 06/19/20 11:12 Intake & Output 06/18/20 06/19/20 06/20/20 06:59 06:59 06:59 Intake Total 2900 3220 886 Output Total 4130 3450 935 Balance -1230 -230 -49 Weight 58.3 kg 57 kg General appearance: PRESENT: no acute distress, cooperative, disheveled Respiratory exam: PRESENT: clear to auscultation gaurav, symmetrical, unlabored. ABSENT: accessory muscle use, chest wall tenderness, crackles, prolonged expiratory phas, rhonchi, tachypnea, wheezes Cardiovascular exam: PRESENT: RRR, +S1, +S2 Pulses: PRESENT: normal carotid pulses Vascular exam: PRESENT: normal capillary refill GI/Abdominal exam: PRESENT: normal bowel sounds, soft. ABSENT: distended, guarding, rebound, tenderness Extremities exam: PRESENT: pedal edema - Left foot, trace edema - Left ankle. ABSENT: clubbing Musculoskeletal exam: ABSENT: deformity Neurological exam: PRESENT: awake, oriented to person, oriented to place, oriented to situation Psychiatric exam: PRESENT: appropriate affect, normal mood Skin exam: PRESENT: dry, erythema - Left foot, extending just proximal to the ankle and significantly diminished, warm Results Laboratory Results: 06/18/20 05:00 06/19/20 10:08 06/19/20 10:08 Sodium 132.7 L Potassium 3.5 L Chloride 102 Carbon Dioxide 23 Anion Gap 8 BUN 19 Creatinine 1.79 H Est GFR ( Amer) 33 L Glucose 342 H Calcium 7.1 L 06/13/20 11:43 Blood Blood Culture - Final NO GROWTH IN 5 DAYS 06/13/20 10:45 Blood Blood Culture - Final NO GROWTH IN 5 DAYS 06/13/20 10:45 Creatine Kinase 138 H Impressions: Venous Doppler Study 06/19/20 00:00 IMPRESSION: NO EVIDENCE OF DVT OR SVT IN THE LEFT LEG. 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 We will continue current therapy. Blood cultures are negative. No evidence of any drainable abscess or DVT. Creatinine continues to improve, not sure what is her baseline. BUN continues to improve. Urine output has been good. I increased her amlodipine and have added chlorthalidone for better blood pressure control. I will add a small dose of Lantus, but it may need to be escalated. - Time Time Spent with patient: 15-24 minutes Anticipated Discharge Disposition: Home with Home Health Anticipated Discharge Timeframe: within 72 hours
[2020-06-20 05:49] LABS: ANION GAP 8 (5-19); BLOOD UREA NITROGEN 19 mg/dL (7-20); CALCIUM 7.4 mg/dL (8.4-10.2); CARBON DIOXIDE 27 mmol/L (22-30); CHLORIDE 103 mmol/L (98-107); GLUCOSE 98 mg/dL (75-110)
[2020-06-20] MEDS: CEFAZOLIN 1 GM/D5W RTU 1 GM/50 ML RTUPB IV SCH ×3 (06:03→21:58)
[2020-06-20 06:04] LABS: POTASSIUM 2.9 mmol/L (3.6-5.0)
[2020-06-20] MEDS ORDERED: POTASSIUM CHLORIDE 20 MEQ PACKET PO ONE (06:44)
[2020-06-20] MEDS: INSULIN LISPRO 100 UNIT/ML 3 ML VIAL SUBCUT SCH ×4 (07:11→21:59)
[2020-06-20] MEDS: PANTOPRAZOLE SODIUM 40 MG TABLET.DR PO SCH (07:43)
[2020-06-20] MEDS: DOCUSATE SODIUM 100 MG CAPSULE PO SCH (09:21)
[2020-06-20] MEDS: CHLORTHALIDONE 25 MG TABLET PO SCH (09:22)
[2020-06-20] MEDS: INSULIN GLARGINE,HUM.REC.ANLOG 1,000 UNIT/10 ML VIAL SUBCUT SCH (09:22)
[2020-06-20] MEDS: ENOXAPARIN SODIUM INJ 30 MG/0.3 ML DISP.SYRIN SUBCUT SCH (09:23)
[2020-06-20] MEDS: AMLODIPINE BESYLATE 10 MG TABLET PO SCH (09:23)
[2020-06-20] MEDS: ASPIRIN 81 MG TABLET, ENT COATED PO SCH (09:23)
[2020-06-20] MEDS: LISINOPRIL 10 MG TABLET PO SCH (09:23)
[2020-06-20] MEDS: LABETALOL HCL 200 MG TABLET PO SCH ×2 (13:59→21:58)
[2020-06-20] MEDS ORDERED: CEFAZOLIN 1 GM/D5W RTU 1 GM/50 ML RTUPB IV SCH (14:00)
--- NOTE | 2020-06-20 15:39 | PDOC PROGRESS REPORT ---
Subjective Date:: 06/20/20 Subjective:: No adverse events overnight. No new complaints. She is actually getting a rohit le bit today. Urine output has been good. We put her on chlorthalidone a few days ago and since then we have had a hard time controlling her potassium. Blood pressure has responded to it, however, Reason For Visit: SONAL, CELLULITIS Physical Exam Vital Signs: Temp Pulse Resp BP Pulse Ox 98.3 F 70 18 139/51 H 88 L 06/20/20 11:37 06/20/20 11:37 06/20/20 11:37 06/20/20 11:37 06/20/20 11:37 Intake & Output 06/19/20 06/20/20 06/21/20 06:59 06:59 06:59 Intake Total 3220 1642 290 Output Total 3450 2535 Balance -230 -893 290 Weight 57 kg 56.6 kg General appearance: PRESENT: no acute distress, cooperative, disheveled Respiratory exam: PRESENT: clear to auscultation gaurav, symmetrical, unlabored. ABSENT: accessory muscle use, chest wall tenderness, crackles, prolonged expiratory phas, rhonchi, tachypnea, wheezes Cardiovascular exam: PRESENT: RRR, +S1, +S2 Pulses: PRESENT: normal carotid pulses Vascular exam: PRESENT: normal capillary refill GI/Abdominal exam: PRESENT: normal bowel sounds, soft. ABSENT: distended, guarding, rebound, tenderness Extremities exam: PRESENT: pedal edema - Left foot, trace edema - Left ankle. ABSENT: clubbing Musculoskeletal exam: ABSENT: deformity Neurological exam: PRESENT: awake, oriented to person, oriented to place, oriented to situation Psychiatric exam: PRESENT: appropriate affect, normal mood Skin exam: PRESENT: dry, erythema - Left foot, now mostly just the foot up to the ankle with diminished overall intensity Results Laboratory Results: 06/18/20 05:00 06/20/20 05:08 06/20/20 05:08 Sodium 137.7 Potassium 2.9 L* Chloride 103 Carbon Dioxide 27 Anion Gap 8 BUN 19 Creatinine 1.97 H Est GFR ( Amer) 29 L Glucose 98 Calcium 7.4 L 06/13/20 10:45 Creatine Kinase 138 H Impressions: Venous Doppler Study 06/19/20 00:00 IMPRESSION: NO EVIDENCE OF DVT OR SVT IN THE LEFT LEG. 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 Should be able to switch her to oral antibiotics very soon. Because of issues with her potassium, I have discontinued chlorthalidone and have started labetalol. I think her creatinine is at its baseline now. Blood sugars are pretty well controlled. She is going to need some physical therapy at home, and a walker if she does not have one. If her potassium and blood pressure look okay tomorrow, we may be able to discharge her home with home health. - Time Time Spent with patient: 15-24 minutes Anticipated Discharge Disposition: Home with Home Health Anticipated Discharge Timeframe: within 48 hours
[2020-06-21 05:44] LABS: ANION GAP 8 (5-19); BLOOD UREA NITROGEN 21 mg/dL (7-20); CALCIUM 7.2 mg/dL (8.4-10.2); CARBON DIOXIDE 27 mmol/L (22-30); CHLORIDE 101 mmol/L (98-107); GLUCOSE 105 mg/dL (75-110)
[2020-06-21] MEDS: CEFAZOLIN 1 GM/D5W RTU 1 GM/50 ML RTUPB IV SCH ×2 (06:10→14:08)
[2020-06-21] MEDS: LABETALOL HCL 200 MG TABLET PO SCH ×2 (06:11→14:08)
[2020-06-21] MEDS: INSULIN LISPRO 100 UNIT/ML 3 ML VIAL SUBCUT SCH ×3 (07:46→16:45)
[2020-06-21] MEDS: PANTOPRAZOLE SODIUM 40 MG TABLET.DR PO SCH (07:52)
[2020-06-21] MEDS: POTASSIUM CHLORIDE 10 MEQ TABLET.ER PO SCH ×2 (09:58→14:08)
[2020-06-21] MEDS: INSULIN GLARGINE,HUM.REC.ANLOG 1,000 UNIT/10 ML VIAL SUBCUT SCH (09:58)
[2020-06-21] MEDS: ASPIRIN 81 MG TABLET, ENT COATED PO SCH (09:58)
[2020-06-21] MEDS: AMLODIPINE BESYLATE 10 MG TABLET PO SCH (09:58)
[2020-06-21] MEDS: LISINOPRIL 10 MG TABLET PO SCH (09:58)
[2020-06-21] MEDS: DOCUSATE SODIUM 100 MG CAPSULE PO SCH (09:58)
[2020-06-21] MEDS: ENOXAPARIN SODIUM INJ 30 MG/0.3 ML DISP.SYRIN SUBCUT SCH (09:59)
[2020-06-21] MEDS: CALCIUM GLUC IN NACL, ISO-OSM 1 GM/50 ML RTUPB IV SCH ×2 (11:55→14:08)
--- NOTE | 2020-06-21 15:53 | PDOC DISCHARGE SUMMARY ---
Impression - Admit/DC Date/PCP Admission Date/Primary Care Provider: 06/13/20 13:49 Discharge Date: 06/21/20 - Discharge Diagnosis (1) SONAL (acute kidney injury) Is this a current diagnosis for this admission?: Yes (2) Cellulitis of left lower extremity Is this a current diagnosis for this admission?: Yes (3) Diabetes Is this a current diagnosis for this admission?: Yes (4) HTN (hypertension) Is this a current diagnosis for this admission?: Yes (5) History of CVA (cerebrovascular accident) Is this a current diagnosis for this admission?: Yes - Assessment Summary: She is having a favorable response to antibiotics, erythema is resolving. Should be able to switch her to oral antibiotics very soon. Because of issues with her potassium, I have discontinued chlorthalidone and have started labet alol. I think her creatinine is at its baseline now. Blood sugars are pretty well controlled. She is going to need some physical therapy at home, and a walker if she does not have one. If her potassium and blood pressure look okay tomorrow, we may be able to discharge her home with home health. - Additional Information Resuscitation Status: Full Code Discharge Diet: Cardiac, Diabetic Discharge Activity: Balance Activity w/Rest, Supervised Activity Prescriptions: Cephalexin [Cephalexin 500 MG Tablet] 1 tab PO QID #40 tablet Glipizide [Glipizide Xl] 5 mg PO BIDACBS #60 Glipizide [Glucotrol Xl 5 mg Tab.er] 5 mg PO BIDBS #60 tab.er.24 Labetalol HCl 100 mg PO BID #60 tablet Amlodipine Besylate [Norvasc 10 mg Tablet] 10 mg PO DAILY #30 tablet Home Medications: Aspirin [Adult Low Dose Aspirin EC] 81 mg PO DAILY 06/13/20 Lisinopril [Zestril] 40 mg PO DAILY 06/13/20 Pantoprazole Sodium [Protonix [address] Tablet] 40 mg PO QAM 06/13/20 Rosuvastatin Calcium [Crestor] 20 mg PO DAILY 06/13/20 Amlodipine Besylate [Norvasc 10 mg Tablet] 10 mg PO DAILY #30 tablet 06/21/20 Cephalexin [Cephalexin 500 MG Tablet] 1 tab PO QID #40 tablet 06/21/20 Glipizide [Glipizide Xl] 5 mg PO BIDACBS #60 06/21/20 Glipizide [Glucotrol Xl 5 mg Tab.er] 5 mg PO BIDBS #60 tab.er.24 06/21/20 Labetalol HCl 100 mg PO BID #60 tablet 06/21/20 History of Present Illiness History of Present Illness: EDGAR ZAMBRANO is a 85 year old femalewho is [place]-speaking only [place], with a past medical history of CVA x3 with residual, mild, left side weakness, HTN, and DM2. She presented to the emergency department after out treatment failure for left lower extremity cellulitis. She was seen at a local urgent care and provided Rocephin followed by oral keflex 4 days ago. Since then, she has had progressively increased tenderness and erythema to her left lower extremity. The cellulitis began to her foot and has gradually spread proximally. The patient's daughter states that she has had increased fatigue, weakness, and some confusion. She denies fever, n/v/d. They do admit to decrease appetite and oral fluids. No urinary symptoms. She has had multiple falls, without injury. Evaluation in the emergency department found stable vital signs, leukocytosis (WBC 17.6 with a left-sided shift), Hyponatremia (NA 129.4), kidney injury (acute versus chronic; no known prior CKD and no prior labs to compare to. Creatinine 3.62/BUN 85), and a glucose of 240. Urinalysis was negative for UTI. Venous Doppler of the left lower extremity negative for thrombosis. Patient was provided 1 L IV bolus and Zosyn. She was then referred to the hospitalist service for further evaluation management of the above stay complaints and findings. Hospital Course Hospital Course: She had IV Ancef for several days and has had excellent degree of resolution of her cellulitis. Because of her extended course, I recommended that she take another 10 days of p.o. Keflex. Her blood pressure has been high here, so we had to have amlodipine increased, we also have added labetalol, and this combination has seemed to have a good effect on her blood pressure along with her lisinopril. Her diabetes was also not well controlled. She was on metformin at home, but with her renal failure this was held. I think her baseline creatinine is somewhere between 1.7 and 2. For this reason, I have discontinued her Metformin and have increased the frequency of her glipizide. Her creatinine had a good response to IV fluids. She was a little unsteady on her feet and very weak when she ambulated, and her daughter says she has a walker at home but does not always use it. We have ordered physical therapy for her at home and have recommended that she use her walker and assistance when she ambulates. Her labs and examination were reassuring and she was discharged in stable condition. Physical Exam Vital Signs: Temp Pulse Resp BP Pulse Ox 98.5 F 74 17 139/62 H 95 06/21/20 11:40 06/21/20 11:40 06/21/20 11:40 06/21/20 11:40 06/21/20 11:40 Intake & Output 06/20/20 06/21/20 06/22/20 06:59 06:59 06:59 Intake Total 1642 1127 770 Output Total 2535 1845 650 Balance -893 -718 120 Weight 56.6 kg 55.6 kg 55.2 kg General appearance: PRESENT: no acute distress, cooperative, disheveled Respiratory exam: PRESENT: clear to auscultation gaurav, symmetrical, unlabored. ABSENT: accessory muscle use, chest wall tenderness, crackles, prolonged expiratory phas, rhonchi, tachypnea, wheezes Cardiovascular exam: PRESENT: RRR, +S1, +S2 Pulses: PRESENT: normal carotid pulses Vascular exam: PRESENT: normal capillary refill GI/Abdominal exam: PRESENT: normal bowel sounds, soft. ABSENT: distended, guarding, rebound, tenderness Extremities exam: PRESENT: pedal edema - Left foot, trace edema - Left ankle. ABSENT: clubbing Musculoskeletal exam: ABSENT: deformity Neurological exam: PRESENT: awake, oriented to person, oriented to place, oriented to situation Psychiatric exam: PRESENT: appropriate affect, normal mood Skin exam: PRESENT: dry, erythema - Left foot, now mostly just the foot up to the ankle with diminished overall intensity Results Laboratory Results: WBC 9.6 10^3/uL (4.0-10.5) 06/18/20 05:00 RBC 3.94 10^6/uL (3.72-5.28) 06/18/20 05:00 Hgb 12.0 g/dL (12.0-15.5) 06/18/20 05:00 Hct 35.0 % (36.0-47.0) L 06/18/20 05:00 MCV 89 fl (80-97) 06/18/20 05:00 MCH 30.6 pg (27.0-33.4) 06/18/20 05:00 MCHC 34.4 g/dL (32.0-36.0) 06/18/20 05:00 RDW 14.0 % (11.5-14.0) 06/18/20 05:00 Plt Count 205 10^3/uL (150-450) 06/18/20 05:00 Lymph % (Auto) Not Reportable 06/14/20 05:00 [place] % (Auto) Not Reportable 06/14/20 05:00 Eos % (Auto) Not Reportable 06/14/20 05:00 Baso % (Auto) Not Reportable 06/14/20 05:00 Absolute Neuts (auto) Not Reportable 06/14/20 05:00 Absolute Lymphs (auto) Not Reportable 06/14/20 05:00 Absolute Monos (auto) Not Reportable 06/14/20 05:00 Absolute Eos (auto) Not Reportable 06/14/20 05:00 Absolute Basos (auto) Not Reportable 06/14/20 05:00 Total Counted 100 06/14/20 05:00 Seg Neutrophils % Not Reportable 06/14/20 05:00 Seg Neuts % (Manual) 90 % (42-78) H 06/14/20 05:00 Band Neutrophils % 1 % (3-5) L 06/14/20 05:00 Lymphocytes % (Manual) 4 % (13-45) L 06/14/20 05:00 Monocytes % (Manual) 5 % (3-13) 06/14/20 05:00 Eosinophils % (Manual) 0 % (0-6) 06/14/20 05:00 Basophils % (Manual) 0 % (0-2) 06/14/20 05:00 Abs Neuts (Manual) 13.1 10^3/uL (1.7-8.2) H 06/14/20 05:00 Abs Lymphs (Manual) 0.6 10^3/uL (0.5-4.7) 06/14/20 05:00 Abs Monocytes (Manual) 0.7 10^3/uL (0.1-1.4) 06/14/20 05:00 Absolute Eos (Manual) 0.0 10^3/uL (0.0-0.6) 06/14/20 05:00 Abs Basophils (Manual) 0.0 10^3/uL (0.0-0.2) 06/14/20 05:00 Hypersegmented Neuts PRESENT 06/14/20 05:00 Platelet Comment ADEQUATE 06/14/20 05:00 Poikilocytosis 1+ 06/14/20 05:00 Anisocytosis SLIGHT 06/13/20 10:45 [place] Cells 1+ 06/14/20 05:00 Sodium 135.8 mmol/L (137-145) L 06/21/20 05:03 Potassium 3.0 mmol/L (3.6-5.0) L* 06/21/20 05:03 Chloride 101 mmol/L (98-107) 06/21/20 05:03 Carbon Dioxide 27 mmol/L (22-30) 06/21/20 05:03 Anion Gap 8 (5-19) 06/21/20 05:03 BUN 21 mg/dL (7-20) H 06/21/20 05:03 Creatinine 1.93 mg/dL (0.52-1.25) H 06/21/20 05:03 Est GFR ( Amer) 30 (>60) L 06/21/20 05:03 Est GFR (MDRD) Non-Af 25 (>60) L 06/21/20 05:03 Glucose 105 mg/dL (75-110) 06/21/20 05:03 POC Glucose 256 mg/dL (70-110) H 06/21/20 11:42 Lactic Acid 1.0 mmol/L (0.7-2.1) 06/13/20 10:45 Calcium 7.2 mg/dL (8.4-10.2) L 06/21/20 05:03 Total Bilirubin 0.5 mg/dL (0.2-1.3) 06/13/20 10:45 Direct Bilirubin 0.2 mg/dL (0.0-0.4) 06/13/20 10:45 Neonat Total Bilirubin Not Reportable 06/13/20 10:45 Neonat Direct Bilirubin Not Reportable 06/13/20 10:45 Neonat Indirect Bili Not Reportable 06/13/20 10:45 AST 32 U/L (14-36) 06/13/20 10:45 ALT 19 U/L (<35) 06/13/20 10:45 Alkaline Phosphatase 112 U/L (38-126) 06/13/20 10:45 Creatine Kinase 138 U/L (30-135) H 06/13/20 10:45 Total Protein 7.3 g/dL (6.3-8.2) 06/13/20 10:45 Albumin 3.9 g/dL (3.5-5.0) 06/13/20 10:45 Urine Color YELLOW 06/13/20 14:38 Urine Appearance SLIGHTLY-CLOUDY 06/13/20 14:38 Urine pH 5.0 (5.0-9.0) 06/13/20 14:38 Ur Specific [place] 1.010 06/13/20 14:38 Urine Protein 30 mg/dL (NEGATIVE) H 06/13/20 14:38 Urine Glucose (UA) NEGATIVE mg/dL (NEGATIVE) 06/13/20 14:38 Urine Ketones NEGATIVE mg/dL (NEGATIVE) 06/13/20 14:38 Urine Blood MODERATE (NEGATIVE) H 06/13/20 14:38 Urine Nitrite (Reflex) NEGATIVE (NEGATIVE) 06/13/20 14:38 Urine Bilirubin NEGATIVE (NEGATIVE) 06/13/20 14:38 Urine Urobilinogen NEGATIVE mg/dL (<2.0) 06/13/20 14:38 Leukocyte Esterase Rfl NEGATIVE (NEGATIVE) 06/13/20 14:38 Urine RBC (Auto) 1 /HPF 06/13/20 14:38 Urine Bacteria (Auto) TRACE /HPF 06/13/20 14:38 Urine WBC (Reflex) 2 /HPF 06/13/20 14:38 Squamous Epi Cells Auto <1 /HPF 06/13/20 14:38 Amorphous Sediment Auto TRACE /HPF 06/13/20 14:38 Urine Creatinine 45.2 mg/dL (15-278) 06/13/20 14:38 Urine Sodium 36 mmol/L (30-90) 06/13/20 14:38 Urine Ascorbic Acid NEGATIVE (NEGATIVE) 06/13/20 14:38 Impressions: Venous Doppler Study 06/13/20 10:24 IMPRESSION: NO EVIDENCE DVT OR SVT IN THE LEFT LEG. Venous Doppler Study 06/19/20 00:00 IMPRESSION: NO EVIDENCE OF DVT OR SVT IN THE LEFT LEG. Plan Time Spent: Greater than 30 Minutes Stroke Is this a Stroke Patient?: No Acute Heart Failure Is this a Heart Failure Patient?: No
[2020-06-21 18:35] VITALS: BP 131/54
== END 2020-06-21 19:45 | disposition home or self-care (01) | DRG 603 ==
LOC: ER 09:11 → EH 13:49 → 4W 16:09
PROVIDERS: ADMIT Hospitalist; ATTEND Family Medicine
DX: L03.116 Cellulitis of left lower limb (principal); N17.9 Acute kidney failure, unspecified; I69.354 Hemiplegia and hemiparesis following cerebral infarction affecting left non-dominant side; E87.1 Hypo-osmolality and hyponatremia; E11.9 Type 2 diabetes mellitus without complications; I10 Essential (primary) hypertension; Z23 Encounter for immunization; Z79.899 Other long term (current) drug therapy; Z82.3 Family history of stroke; Z83.3 Family history of diabetes mellitus; Z82.49 Family history of ischemic heart disease and other diseases of the circulatory system; Z79.82 Long term (current) use of aspirin; Z79.84 Long term (current) use of oral hypoglycemic drugs; Z91.81 History of falling
CPT/HCPCS: 36415; 80048; 80053; 81001; 82550; 82570; 82962; 83605; 84300; 85025; 85027; 87040; 90471; 90686; 92950; 93971; 96361; 96365; 99285; J0610; G0008; J0690; J1650; J1815; J2543; J3490; J7030